=== PATIENT | male | born 1965 | race Caucasian/White ===

== ENCOUNTER → 2020-11-11 11:08 | Outpatient (REF) | payer BC, SELFPAY | LOC: ANHLAB 11:08 | PROVIDERS: PCP Internal Medicine; Visit Provider Nurse Practitioner | DX: L98.9 Disorder of the skin and subcutaneous tissue, unspecified (principal); Z85.820 Personal history of malignant melanoma of skin | CPT/HCPCS: 88305 ==

== ENCOUNTER 2022-11-17 07:00 | Outpatient (NON) | payer BC, SELFPAY | END 2022-11-17 07:01 | disposition home or self-care (01) | LOC: ANHLAB 11-23 08:18 | PROVIDERS: PCP Internal Medicine; Visit Provider Nurse Practitioner | DX: H61.001 Unspecified perichondritis of right external ear (principal); L72.8 Other follicular cysts of the skin and subcutaneous tissue | CPT/HCPCS: 88304; 88305; 88313 ==